=== PATIENT | female | born 1995 | race Caucasian/White ===

== ENCOUNTER 2019-10-19 13:38 | Emergency (ER) | payer BC ==
--- NOTE | 2019-10-19 14:15 | Emergency Department Record ---
History of Present Illness - General Chief complaint: Extremity Problem Stated complaint: RT ANKLE PAIN\ Time Seen by Provider: 10/19/19 14:01 Source: Patient Mode of Arrival: Ambulatory Limitations: No limitations - History of Present Illness Initial comments: The patient has had R ankle pain for at least 3 months since an object at work fell on the medial R ankle. She has been seen at her occupational health clinic multiple times and has had neg xrays. Now due to the persistent pain she presents here for a possible MRI or US of the leg and ankle. There has been no new injury. MD Complaint: Extremity pain Onset/Timin -: Month(s) Location: Right, Ankle Radiation: Proximal Severity scale (1-10): 4 Quality: Aching - Related Data Home Medications Medication Instructions Recorded Confirmed Last Taken No Home Med [NO HOME MEDS] 10/19/19 10/19/19 Unknown Allergies Allergy/AdvReac Type Severity Reaction Status Date / Time No Known Allergies Allergy HYPERSENSIT Verified 10/19/19 13:57 IVITY Travel Screening - Travel/Exposure Within Last 30 Days Have you traveled within the last 30 days?: No - Travel/Exposure Within Last Year Have you traveled outside the [place] in the last year?: No - Additonal Travel Details Have you been exposed to anyone with a communicable illness?: No - Travel Symptoms Symptom Screening: None Review of Systems Constitutional: Denies: Chills, Fever Past Medical History - SOCIAL HISTORY Smoking Status: Never smoker Alcohol Use: None Drug Use: None - RESPIRATORY Hx Respiratory Disorders: No - CARDIOVASCULAR Hx Cardio Disorders: No - NEURO Hx Neuro Disorders: No - GI Hx GI Disorders: No - Hx Genitourinary Disorders: No - ENDOCRINE Hx Endocrine Disorders: No - MUSCULOSKELETAL Hx Musculoskeletal Disorders: No - PSYCH Hx Psych Problems: No - HEMATOLOGY/ONCOLOGY Hx Hematology/Oncology Disorders: No Family Medical History Any Significant Family History?: Yes Physical Exam - General General Appearance: Alert, Cooperative, No acute distress - Head Head exam: Atraumatic - Eye Eye exam: Normal appearance - Extremities Extremities exam: Normal inspection (There is no R ankle bruising, swelling, or redness. There is mild tenderness over the medial malleolus.), Full ROM, Normal capillary refill, Tenderness, Other (The R foot is NVI with normal pulses.). negative: Calf tenderness, Joint swelling, Pedal edema - Neurological Neurological exam: Alert, Normal gait, Oriented X3. negative: Abnormal gait, Motor sensory deficit - Psychiatric Psychiatric exam: negative: Anxious Course Vital Signs 10/19/19 13:45 Temperature 97.9 F Pulse Rate 64 Respiratory 16 Rate Blood Pressure 129/61 Pulse Ox 100 - Reevaluation(s) Reevaluation #1: I explained to the patient that we do not perform MRI's for chronic pain issues and I see no need for an US. Additionally we have no US here today either way. She is instructed to see her PCP next week for recheck. 10/19/19 14:25 Disposition Disposition: Discharge Clinical Impression: Ankle pain, chronic Qualifiers: Laterality: right Qualified Code(s): M25.571 - Pain in right ankle and joints of right foot Disposition: Home, Self-Care Condition: (2) Stable Instructions: Arthralgia (ED) Additional Instructions: Please continue to wrap the ankle if needed and use Tylenol or Motrin for pain. Please see your family doctor for further evaluation. Forms: Patient Portal Access Time of Disposition: 14:15 Quality - Quality Measures Quality Measures: N/A - Blood Pressure Screening View Details: Yes Does Patient Have Any of the Following: No Blood Pressure Classification: Pre-Hypertensive BP Reading Systolic Measurement: 129 Diastolic Measurement: 61 Screening for High Blood Pressure: < Pre-Hypertensive BP, F/U Documented > [G8950] Pre-Hypertensive Follow-up Interventions: Referral to alternative/primary care provider.
== END 2019-10-19 14:30 | disposition home or self-care (01) ==
LOC: ER 13:38
DX: M25.571 Pain in right ankle and joints of right foot (principal); G89.11 Acute pain due to trauma
CPT/HCPCS: 99283